=== PATIENT | female | born 1975 | race Hispanic/Latino ===

== ENCOUNTER 2021-05-19 23:18 | Emergency (ER) | payer SELFPAY ==
[2021-05-19 23:49] LABS: #Basophils 0.1 thou/uL (0.0-0.2); #Eosinphils 0.2 thou/uL (0.0-0.7); #Lymphocytes 3.3 thou/uL (1.20-3.40); #Monocytes 0.4 thou/uL (0.11-0.59); #Neutrophils 4.7 thou/uL (1.40-6.50); %Basophils 1.3 % (0.0-1.0); %Eosinophils 2.2 % (0.0-10.0); %Monocytes 4.4 % (0.0-10.0); %Neutrophils 54.1 % (42.0-75.0); Hemoglobin 14.9 g/dL (12.0-16.0); Mean Corpuscular Hemoglobin 30.8 pg (27.0-31.0); Mean Corpuscular Volume 83.1 fL (78.0-98.0); Mean Platelet Volume 8.7 fL (7.4-10.4); Platelet Count 252 thou/uL (130-400); RBC Distribution Width 12.8 % (11.5-14.5); Red Blood Cell (RBC) Count 4.84 mill/uL (4.20-5.40); White Blood Cell (WBC) Count 8.6 thou/uL (4.8-10.8)
[2021-05-20] MEDS ORDERED: Cyclobenzaprine 10 MG TAB ONE (00:34)
[2021-05-20] MEDS ORDERED: Acetaminophen 325 MG TAB ONE (00:34)
[2021-05-20 00:47] LABS: Albumin 4.3 g/dL (3.5-5.0)
[2021-05-20 00:48] LABS: Chloride 101 mmol/L (98-107)
[2021-05-20 00:49] LABS: Calcium 10.3 mg/dL (7.8-10.44); Sodium 136 mmol/L (136-145)
[2021-05-20 00:50] LABS: Globulin 3.7 g/dL (2.4-3.5); Glucose 181 mg/dL (70-105)
[2021-05-20 00:51] LABS: Anion Gap 18 mmol/L (10-20); Carbon Dioxide 21 mmol/L (22-29)
[2021-05-20 00:52] LABS: Bilirubin, Total 0.2 mg/dL (0.2-1.2)
[2021-05-20 00:53] LABS: Alkaline Phosphatase 120 U/L (40-110); Calc. Creatinine Clearance 0 mL/min (70-130)
[2021-05-20 00:54] LABS: BUN (Urea Nitrogen) 9 mg/dL (7.0-18.7)
[2021-05-20 00:55] LABS: AST (SGOT) 29 U/L (5-34)
[2021-05-20 00:56] LABS: ALT (SGPT) 45 U/L (8-55)
== END 2021-05-20 01:50 | disposition home or self-care (01) ==
LOC: ERS 23:18
DX: M54.2 Cervicalgia (principal); R51.9 Headache, unspecified; M54.6 Pain in thoracic spine; R73.03 Prediabetes; Z79.84 Long term (current) use of oral hypoglycemic drugs
CPT/HCPCS: 36415; 36416; 80053; 85025; 99284

== ENCOUNTER 2022-05-29 11:52 | Emergency (ER) | payer SELFPAY ==
[2022-05-29] MEDS ORDERED: Mag-Al 1200 mg/1200 mg/30 ML UDCUP ONE (12:46)
[2022-05-29 12:53] LABS: #Basophils 0.1 thou/uL (0.0-0.2); #Eosinphils 0.1 thou/uL (0.0-0.7); #Lymphocytes 2.8 thou/uL (1.20-3.40); #Monocytes 0.3 thou/uL (0.11-0.59); %Basophils 0.9 % (0.0-1.0); %Eosinophils 1.3 % (0.0-10.0); %Lymphocytes 38.7 % (21.0-51.0); %Monocytes 3.8 % (0.0-10.0); %Neutrophils 55.3 % (42.0-75.0); Hemoglobin 14.4 g/dL (12.0-16.0); Mean Corpuscular HGB CONC 34.8 g/dL (32.0-36.0); Mean Corpuscular Hemoglobin 30.8 pg (27.0-31.0); Mean Corpuscular Volume 88.6 fl (78.0-98.0); Mean Platelet Volume 8.8 fL (7.4-10.4); Platelet Count 219 10x3/uL (130-400); RBC Distribution Width 11.5 % (11.5-14.5); Red Blood Cell (RBC) Count 4.66 mill/uL (4.20-5.40); White Blood Cell (WBC) Count 7.3 10x3/uL (4.8-10.8)
[2022-05-29] MEDS ORDERED: Lidocaine 2% Viscous Solution 10 ML, Aluminum & Magnesium Hydroxide 30 ML SSW SCH (13:00)
[2022-05-29 13:33] LABS: ALT (SGPT) 35 U/L (8-55); AST (SGOT) 25 U/L (5-34); Albumin 4.3 g/dL (3.5-5.0); Alkaline Phosphatase 102 U/L (40-110); Anion Gap 14 mmol/L (10-20); BUN (Urea Nitrogen) 13 mg/dL (7.0-18.7); Bilirubin, Total 0.4 mg/dL (0.2-1.2); Calc. Creatinine Clearance 0 mL/min (70-130); Calcium 9.8 mg/dL (7.8-10.44); Carbon Dioxide 23 mmol/L (22-29); Chloride 105 mmol/L (98-107); Estimated GFR 109; Globulin 3.3 g/dL (2.4-3.5); Glucose 154 mg/dL (70-105); Potassium 4.2 mmol/L (3.5-5.1); Protein, Total 7.6 g/dL (6.0-8.3); Sodium 138 mmol/L (136-145)
== END 2022-05-29 14:37 | disposition home or self-care (01) ==
LOC: ERS 11:52
DX: T65.91XA Toxic effect of unspecified substance, accidental (unintentional), initial encounter (principal)
CPT/HCPCS: 36415; 80053; 85025; 99284